=== PATIENT | male | born 1935 | race Caucasian/White ===

== ENCOUNTER 2018-03-13 09:19 | Observation (INO) | payer MEDICARE, OTHER ==
[~2018-03-13] VITALS: Ht 172.7 cm; Wt 81.2 kg
[2018-03-13] VITALS (15 sets, daily range): BP systolic 82–141; BP diastolic 45–80
[~2018-03-13 09:19] MED LIST: ADVAIR HFA 230M12 GM INH; ASPIR 8181 MG PO; CELEXA20 MG PO; CRESTOR10 MG; CRESTOR20 MG PO; ELIQUIS2.5 MG PO; FINASTERIDE5 MG PO; FLOMAX0.4 MG PO; FUROSEMIDE 80 M80 MG PO; LISINOPRIL5 MG PO; NITROGLYCERIN0.4 MG SUBLING; OMEPRAZOLE 20 M20 M1 PO; PLAVIX 75 MG TA75 M1 PO; XALATAN2.5 ML INTRAOCULR; XALATAN2.5 ML OPHTHALMIC
[2018-03-13] MEDS ORDERED: SYMBICORT160 MCG/4. INH (10:16)
[2018-03-13] MEDS ORDERED: ASPIR 8181 MG PO (10:17)
[2018-03-13 10:18] LABS: HEMATOCRIT 43.7 % (42.0-52.0); HEMOGLOBIN 14.9 gm/dL (14.0-18.0); MCH 33.4 pg (26.0-34.0); MCHC 34.1 g/dL (28.0-37.0); MCV 97.8 fL (80.0-100.0); MPV 8.8 fl. (7.2-11.1); RBC 4.47 mil/uL (4.50-6.00); RDW-CV 15.1 % (10.5-14.5); WBC 8.5 thou/uL (4.0-11.0)
[2018-03-13] MEDS ORDERED: IMDUR 30 MG TAB30 M1 PO (10:18)
[2018-03-13 10:34] LABS: ANION GAP 13 mmol/L (7-16); BUN 40 mg/dL (7-18); CALCIUM 9.7 mg/dL (8.5-10.1); CHLORIDE 103 mmol/L (98-107); CO2 24 mmol/L (21-32); CREATININE 2.2 mg/dL (0.6-1.3); GLUCOSE 93 mg/dL (70-99); POTASSIUM 4.3 mmol/L (3.5-5.1); SODIUM 140 mmol/L (136-145)
[2018-03-13 10:38] LABS: ALBUMIN 3.9 g/dL (3.4-5.0); ALKALINE PHOSPHATASE 60 U/L (46-116); CHOLESTEROL 180 mg/dL (<200); HDL CHOLESTEROL 62 mg/dL (>40); LDL CHOLESTEROL 99 mg/dL (<100); SGOT 17 U/L (15-37); SGPT 22 U/L (30-65); TC:HDL 2.9 Ratio (Not establshd); TOTAL BILIRUBIN 0.4 mg/dL (<0.1-1.0); TOTAL PROTEIN 7.7 g/dL (6.4-8.2); TRIGLYCERIDE 95 mg/dL (<150); VLDL 19 mg/dL (<40)
[2018-03-13 10:39] LABS: APTT 29.7 Seconds (25.0-31.3)
[2018-03-13 10:44] LABS: SERUM ASSESSMENT Clear
[2018-03-13 14:35] LABS: CK-MB MASS 1.3 ng/mL (<0.5-3.6); TROPONIN-I LEVEL <0.06 ng/mL (<0.06)
--- NOTE | 2018-03-13 16:09 | NUR ---
RECIEVIED REPORT FROM JAKE RN IN DRIVER MANAGER AT 1450 OF EXPECTED ADMISSION POST CATH- PT REPORTED TO HAVE RECIEVIED 2 STENTS WITH ACCESS TO RIGHT GROIN- PT ARRIVED TO ROOM 201 VIA CART WITH TRANSFER TO BED WITH ASSIST X3- DRY BOX OPERATOR PLACED ORDERED, NOTED TO BE AV PACED WITH PACEMAKER NOTED-PT A&O X4- CONTINENT OF BOWEL AND BLADDER- LCTA, DIMINISHED IN BASES- RESP EVEN AND UN-LABORED- VS 97.5 20 132/62 72 97% ON 2L VIA NC- ABDOMEN SOFT/OBESE/NON-TENDER, BS X4 QUADS- LAST BM REPORTED 03/12/18- RIGHT GROIN SITE C/D/I WITH GAUZE TRANSPARENT DRESSING IN PLACE WITH NO VISIBLE DRAINAGE OR HEMATOME NOTED- PT INSTRUCTED IMMOBILIZATION TO RLE- POST CATH VITALS PER PROTCOL IN PLACE ORDERED- PT RATES PAIN TO BE SUBSIDING TO CHEST AT 05/04- SKIN C/D/I- NOTED WITH OWN TEETH IN PLACE- RIGHT HEARING LOSS NOTED- REPORS TO WEAR GLASSES THAT PT REPORTS TO HAVE AT TIME OF ADMISSION- IV NOTED TO RIGHT FA INTACT, IVF INFUSSING PRESCIBED- CALL LIGHT AND PERSONAL BELONGINGS WITH IN REACH- HOURLY ROUNDS IN PLACE R/T SAFETY/NEEDS- ALL NEEDS MET AT THIS TIME-WCTM
[2018-03-13 21:40] LABS: HEMOGLOBIN 11.9 gm/dL (14.0-18.0)
[2018-03-14] VITALS: BP 81/47
[2018-03-14 04:00] VITALS: BP 80/46
[2018-03-14 04:50] LABS: HEMATOCRIT 34.8 % (42.0-52.0); HEMOGLOBIN 11.7 gm/dL (14.0-18.0); MCH 33.5 pg (26.0-34.0); MCHC 33.5 g/dL (28.0-37.0); MPV 8.9 fl. (7.2-11.1); RBC 3.48 mil/uL (4.50-6.00); RDW-CV 15.4 % (10.5-14.5); WBC 7.2 thou/uL (4.0-11.0)
[2018-03-14 05:19] LABS: ALBUMIN 2.9 g/dL (3.4-5.0); CALCIUM 8.5 mg/dL (8.5-10.1); POTASSIUM 4.7 mmol/L (3.5-5.1); TOTAL BILIRUBIN 0.5 mg/dL (<0.1-1.0); TOTAL PROTEIN 5.4 g/dL (6.4-8.2); TROPONIN-I LEVEL 0.15 ng/mL (<0.06)
--- NOTE | 2018-03-14 05:44 | NUR ---
BP DECREASED, CARDIO CONTACTED ORDERS RECIEVED. PT BP STABLIZED AROUND 80'S / 40'S. NO COMPLAINTS OF LEG PAIN OR UNSTABLE ANGINA. SEE MAR. SEE CHARTING. FALL PRECAUTIONS IN PLACE. HOURLY ROUNDING FOR SAFETY.
[2018-03-14 08:05] VITALS: BP 98/56
--- NOTE | 2018-03-14 08:05 | NUR ---
RECEIVED REPORT FROM WILL AND ASSUMED CARE OF PT @ 2560.PT IS A/O X4,BP LOW @ 98/56.TRACING SR WITH BBB ON THE MONITOR.PT IV PATENT WITH IVF INFUSING PER ORDERS.PT IS CALM AND COOPERATIVE WITH C/O INTERMITTENT PAIN IN CHEST.PT IS UP SBA IN ROOM.PT LEFT RSTING IN BED WITH CALL LIGHT AND FALL PRECAUTIONS IN PLACE. AT BEDSIDE.WILL CONTINUE TO MONITOR.
[2018-03-14] MEDS ORDERED: PLAVIX 75 MG TA75 M1 PO (11:43)
--- NOTE | 2018-03-14 12:21 | NUR ---
PT OK FOR DISCHARGE.DISCHARGE PAPERWORK COMPLETED ANF GIVEN TO PT.SCRIPTS GIVEN WITH EDUCATION.IV REMOVED.HEART MONITOR REMOVED AND RETURNED TO NURSING STATION.ALL PERSONAL BELIONGINGS PACKED AND GIVEN TO PT.POST HOSPITAL FOLLOW UP SCHEDULED.CATH SITE CLEAN,DRY,AND INTACT.PT WHEELED OUT BY NURSING STAFF TO PERSONAL VEHICLE.
--- NOTE | 2018-03-14 14:51 | EKG ---
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: : 1935 Requested By: Durga Perry Order Number: [id number] Susy MD: Durga Perry Measurements Intervals [place] Rate: 73 P: 0 [place]: 79 QRS: -10 QRSD: 183 T: 163 QT: 465 QTc: 513 Interpretive Statements Atrial-ventricular dual-paced complexes No further analysis attempted due to paced rhythm Compared to ECG 10/06/2016 07:44:07 No significant changes Electronically Signed On 03-14-2018 14:51:06 RECLAIMER by Durga Perry [email or web address] <ELECTRONICALLY SIGNED> By: Durga Perry MD, [facility] 03/14/18 1451 1003 1003 Durga Perry MD, [facility] /EPI
--- NOTE | 2018-03-14 14:52 | EKG ---
[place] [address] ELECTROCARDIOGRAM REPORT Name: EDSON FORREST Room: [address] M.R.#: [id number] Admission: 03/13/18 Attend Phys: Durga Perry MD, Discharge: 03/14/18 Date of : 31 Report #: [id number] THIS REPORT FOR: //name// [facility] Test Date: 2018-03-13 Test Time: 13:36:48 Pat Name: EDSON FORREST Department: Room: [facility] Gender: M Animal Sitter: : 1935 Requested By: Durga Perry Order Number: [id number] Susy MD: Durga Perry Measurements Intervals [place] Rate: 68 P: 49 PA: 52 QRS: 89 QRSD: 213 T: 211 QT: 543 QTc: 578 Interpretive Statements Ventricular-paced complexes No further analysis attempted due to paced rhythm Compared to ECG 10/06/2016 07:44:07 No significant changes Electronically Signed On 03-14-2018 14:52:40 FOUNDRY WORKER GENERAL by Durga Perry [email or web address] <ELECTRONICALLY SIGNED> By: Durga Perry MD, [facility] 03/14/18 1452 1336 1336 Durga Perry MD, [facility] /EPI
--- NOTE | 2018-03-14 15:01 | EKG ---
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: : 1935 Requested By: Durga Prery Order Number: [id number] Reading MD: Durga Perry Measurements Intervals [place] Rate: 75 P: 16 VT: 67 QRS: -4 QRSD: 190 T: 7 QT: 478 QTc: 534 Interpretive Statements A-V dual-paced rhythm with some inhibition No further analysis attempted due to paced rhythm Compared to ECG 10/06/2016 07:44:07 No significant changes Electronically Signed On 03-14-2018 15:01:06 DIVER TENDER by Durga Perry [email or web address] <ELECTRONICALLY SIGNED> By: Durga Perry MD, [facility] 03/14/18 1501 0810 0810 Durga Perry MD, [facility] /EPI
--- NOTE | 2018-03-14 16:15 | D ---
[address] [address] DISCHARGE SUMMARY Name: EDSON FORREST Room: [address] Sue M.R.#: [id number] Admission: 03/13/18 Attend Phys: Durga Perry MD, Discharge: 03/14/18 Date of : 31 Report #: [id number] THIS REPORT FOR: //name// CC: NILESH Perry DATE OF SERVICE: 03/14/2018 LOCATION: 201 FINAL DISCHARGE DIAGNOSES: 1. Unstable angina. 2. Status post remote coronary artery bypass grafting. 3. Status post multiple percutaneous coronary interventions, most recently vein graft of the circumflex on 03/13/2018. 4. Coronary artery disease. 5. Chronic obstructive pulmonary disease. 6. Hyperlipoproteinemia. 7. History of pulmonary emboli. PROCEDURES: 03/13/2018 -- left heart catheterization, selective coronary arteriography, aortocoronary saphenous vein bypass graft study, and percutaneous coronary intervention of the vein graft to the circumflex. The patient is a very pleasant 82-year-old male with complex coronary and vascular disease. He is status post remote coronary artery bypass grafting. There is a history of hyperlipoproteinemia, chronic obstructive pulmonary disease and prior pulmonary emboli. Recently, he has noted an increase in frequency and severity of episodes of angina compatible with clinical instability. In this context, I performed repeat cardiac catheterization on 03/13/2018, which revealed a widely patent LAD with multiple stents throughout with 40% proximal and midvessel narrowing. Circumflex was totally occluded with a patent saphenous vein graft to the circumflex with 80% very proximal and 75% mid graft in-stent restenosis. The right coronary artery was totally occluded, but filled via collaterals from the circumflex. Given this data, I performed percutaneous coronary intervention, deploying 2 drug-eluting stents in the very proximal graft of the circumflex and one in the mid with 10% residual narrowing at both sites following stent deployment and WU 3 flow of the distal vessel. Troponin steve inconsequentially to 0.15 units. He did well post-procedurally and there was good hemostasis [place] [address] DISCHARGE SUMMARY Name: EDSON FORREST [address]: [address]#: [id number] Admission: 03/13/18 Attend Phys: Durga Perry MD, Discharge: 03/14/18 Date of : 33 Report #: [id number] site of catheterization. LABORATORY DATA: On 03/14/2018 revealed sodium 140, potassium 4.0. BUN 34, down from 40. Creatinine 2.0, down from 2.2 preprocedurally. Glucose 87. White blood cell count 7200, hemoglobin 11.7, hematocrit 34.8, platelet count 179,000. He ambulated in the hallways without difficulty. He was discharged to home in stable condition on 03/14/2018 on the following medications: Apixaban or Eliquis 2.5 mg b.i.d., aspirin 81 mg daily, Symbicort inhaled b.i.d., citalopram 20 mg daily, Plavix or clopidogrel 75 mg daily with 600 mg loading dose, finasteride 5 mg at bedtime, furosemide 80 mg daily, Imdur 30 mg daily, Xalatan eyedrops 1 drop at bedtime, lisinopril 5 mg at bedtime, Crestor 40 mg at bedtime, tamsulosin or Flomax 0.4 mg b.i.d., p.r.n. sublingual nitroglycerin. I will plan to see him in followup in the first week of March, and his continuing care will be with Dr. Nilesh Rachel. <ELECTRONICALLY SIGNED> By: Durga Perry MD, [facility] 03/14/18 1615 0942 1004Durga Perry MD, FAC /nt
--- NOTE | 2018-03-15 11:36 | CARD ---
[address] [address] CARDIAC CATH REPORT Name: EDSON FORREST Room: [address] Sue M.R.#: [id number] Admission: 03/13/18 Attend Phys: Durga Perry MD, Discharge: 03/14/18 Date of : 31 Report #: [id number] THIS REPORT FOR: //name// APPROVED REPORT Study performed: 03/13/2018 11:24:44 Patient Details Patient Status: Out-Patient Room #: The patient is a 82 year-old male Event Personnel Durga Perry Indoor Landscaper/Gardener, Madyson Thomas RN RN, Fei Murcia Monitor, Carlton Raza Haley, Jessica RTR Monitor, Claudia Parker RN Occupational Therapy Co Director Procedures Performed Art Access - R femoral artery* Left Heart Cath Coronaries, Bypass Grafts LHCCORCABG DANYELLE Revasc Graft Single CIRC C9604 SVGREVSING Hemostasis w/ Angioseal Indication Unstable angina Risk Factors Hypercholesterolemia, Hypertension, Last Creatanine 2.2 Previous Procedures/Diagnoses Previous CABGPrevious PCI Admission/Lab Medications/Medications given during procedure Angiomax IV 10.5 mg per kg, Angiomax Drip IV 24.9 ml per hr, Angiomax IV 6 ml Procedure Narrative The patient was brought electively to the Cardiac Catheterization Laboratory and was prepped and draped in a sterile manner. The right femoral was infiltrated with 2% Lidocaine subcutaneous anesthesia. A Foster 6 FR sheath was inserted into the right femoral artery. Coronary angiography was performed using coronary diagnostic catheters. The right coronary system was accessed and visualized with a Diagnostic 6Fr JR4 catheter. The left coronary system was accessed and visualized with a Diagnostic 6Fr JL4 catheter. Left ventricular/Aortic Valve gradient assessed via catheter pullback. Pre-demployment femoral angiogram was performed . [place] [address] CARDIAC CATH REPORT Name: EDSON FORREST Room: [address] M.R.#: [id number] Admission: 03/13/18 Attend Phys: Durga Perry MD, Discharge: 03/14/18 Date of : 33 Report #: [id number] deployed with a 6 Fr Angioseal STS 6Fr. Hemostasis was obtained with manual pressure following sheath removal without any complications. The patient tolerated the procedure well and there were no complications associated with the procedure. There was no hematoma. Intraoperative Conscious Sedation Sedation start time: 1154 Case end Time: 1300 Fentanyl 100 mcg Versed 3 mg Fluoro Time: 23.8 minutes Dose: DAP [id number] cGycm2 84.1 mGy Contrast Type and Amount: Visipaque 300 ml Coronary Angiography The patient's coronary anatomy is right dominant. Diagnostic Cath Left Main 0% narrowing LAD 40% proximal and mid LAD narrowing with multiple patent stents Circumflex 100% proximal occlusion Right Coronary 100% mid vessel occlusion with collaterals from the distal circumflex to the distal right coronary artery Hemodynamics The aortic pressure is 113/59 mmHg with a mean of 81 mmHg. The left ventricular pressure is 109/-2 mmHg with a mean of mmHg. The left ventricular end diastolic pressure is 8 mmHg. There was no gradient across the aortic valve upon pullback. PCI Technique Lesion Anticoagulation was achieved with Angiomax. Percutaneous coronary intervention was performed on the SVG of Circumflex; 80% proximal with 75% mid graft in-stent restenosis. A 6F JR 4.0 Guide Catheter was used to engage the ostium. A BMW 190 Interventional Guidewire was used to cross the lesion. BALLOON DILATION A Balloon catheter Trek RX 3.0 X 8 was inserted and inflated up to 18:00atm for 9seconds. A Balloon catheter EA NC Trek 3.50X8 was inserted and inflated up 20atm for 17 seconds. additional inflation up to 22atm for 14seconds. [place] [address] CARDIAC CATH REPORT Name: EDSON FORREST Room: [address] MClemenciaR.#: [id number] Admission: 03/13/18 Attend Phys: Durga Perry MD, Discharge: 03/14/18 Date of : 33 Report #: [id number] STENT DEPLOYMENT A drug-eluting stent Xience Lori 3.5X8mm was inserted and inflated up to 17.00atm for 16seconds. Additional Inflation: 18.00atm for 10seconds. A drug-eluting stent Xience Lori 3.25X12 was inserted and inflated up to 14:00atm for 21 seconds. additional [id number]:00 sultana for 11 seconds. A drug-eluting stent Xience Lori 3.5X8 was inserted and inflated up to 14:00atm for 8 seconds. Additional infation for 16:00atm for 12 seconds. This pertains to the proximal lesion A 3.5 by 8mm Lori stent was deployed in the midportion of the graft after predilatation with a 3.5 x 8 mm NC trek balloon POST STENT DEPLOYMENT BALLOON DILATION A Balloon catheter NC Trek RX 3.5 X 8 was inserted and inflated up to 15.00atm for 11seconds. Additional Inflation: 16.00atm for 10seconds. Additional Inflation: 16.00atm for 7seconds. Final angiography reveals 10 % stenosis with WU 3 flow. Conclusion #1 significant coronary artery disease characterized by the following: A 40% proximal and mid LAD narrowing with widely patent stents at multiple sites B total occlusion of the circumflex proximally C total occlusion of right coronary artery in its midportion with collaterals from the distal circumflex to the distal right coronary artery #2 graft study characterized by the following: A patent saphenous vein graft to the circumflex with 80% focal proximal and 75% mid graft in-stent restenosis #3 normal left-sided hemodynamics study #4 successful percutaneous coronary intervention with deployment of sequential drug-eluting stents at the sites of 80% focal proximal and 75% mid saphenous vein graft in-stent restenosis with 10% residual narrowing at both sites following stent deployment and WU-3 flow to the distal vessel Recommendations [address] [address] CARDIAC CATH REPORT Name: EDSON FORREST Room: [address]R.#: [id number] Admission: 03/13/18 Attend Phys: Durga Perry MD, Discharge: 03/14/18 Date of : 33 Report #: [id number] Daily ASA with Plavix for at least one year Cardiac Risk Reduction Program Aggressive Medical Therapy Medications Administered Aspirin (any) Clopidogrel Diagnostic Cath Approved by: Durga Perry MD Date/Time: 03/15/2018 11:34:05 <ELECTRONICALLY SIGNED> By: Durga Perry MD, FAC 03/15/18 1136 1136 1136Durga Perry MD, FACC /INF
== END 2018-03-14 12:45 | disposition home or self-care (01) ==
LOC: M.CL 09:19 → M.2W 13:32 → M.TBA-CV 13:32 → M.2W 15:16
PROVIDERS: Internal Medicine Cardiovascular Disease; ADMIT Internal Medicine
DX: I25.110 Atherosclerotic heart disease of native coronary artery with unstable angina pectoris (principal); J44.9 Chronic obstructive pulmonary disease, unspecified; E78.5 Hyperlipidemia, unspecified; Z86.711 Personal history of pulmonary embolism; Z95.1 Presence of aortocoronary bypass graft

== ENCOUNTER 2019-01-29 07:26 | Observation (INO) | payer MEDICARE, OTHER ==
[~2019-01-29] VITALS: Ht 172.7 cm; Wt 73.5 kg
[2019-01-29] VITALS (10 sets, daily range): BP systolic 112–140; BP diastolic 65–77
--- NOTE | ~2019-01-29 | H ---
[address] [address] HISTORY AND PHYSICAL Name: EDSON FORREST Room: [address] Sue M.RClemencia#: [id number] Admission: 01/29/19 Attend Phys: Durga Perry MD, Discharge: 01/30/19 Date of : 33 Report #: [id number] THIS REPORT FOR: //name// Please refer to the History and Physical performed in the physician's office. By: 0650Medical Records Staff RENE /ANABELL
[~2019-01-29 07:26] MED LIST changes: +IMDUR 30 MG TAB30 M1 PO; +SYMBICORT160 MCG/4. INH
[2019-01-29 08:56] LABS: HEMATOCRIT 42.4 % (42.0-52.0); HEMOGLOBIN 14.7 gm/dL (14.0-18.0); MCH 33.8 pg (26.0-34.0); MCHC 34.7 g/dL (28.0-37.0); MCV 97.3 fL (80.0-100.0); MPV 8.8 fl. (7.2-11.1); RBC 4.35 mil/uL (4.50-6.00); RDW-CV 15.1 % (10.5-14.5); WBC 7.8 thou/uL (4.0-11.0)
[2019-01-29 09:05] LABS: ANION GAP 10 mmol/L (7-16); BUN 33 mg/dL (7-18); CALCIUM 10.1 mg/dL (8.5-10.1); CHLORIDE 107 mmol/L (98-107); CO2 24 mmol/L (21-32); CREATININE 2.2 mg/dL (0.6-1.3); GLUCOSE 68 mg/dL (70-99); POTASSIUM 4.4 mmol/L (3.5-5.1); SODIUM 141 mmol/L (136-145)
[2019-01-29 09:09] LABS: ALBUMIN 3.7 g/dL (3.4-5.0); ALKALINE PHOSPHATASE 54 U/L (46-116); CHOLESTEROL 179 mg/dL (<200); HDL CHOLESTEROL 61 mg/dL (>40); LDL CHOLESTEROL 100 mg/dL (<100); SGOT 18 U/L (15-37); SGPT 20 U/L (30-65); TC:HDL 2.9 Ratio (Not establshd); TOTAL BILIRUBIN 0.4 mg/dL (<0.1-1.0); TOTAL PROTEIN 7.2 g/dL (6.4-8.2); TRIGLYCERIDE 93 mg/dL (<150); VLDL 19 mg/dL (<40)
[2019-01-29 09:14] LABS: SERUM ASSESSMENT Clear
[2019-01-29 09:22] LABS: APTT 26.9 Seconds (25.0-31.3)
--- NOTE | 2019-01-29 11:08 | EKG ---
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: : 1935 Requested By: Yann Ureña Order Number: [id number] Susy MD: Yann Ureña Measurements Intervals [place] Rate: 77 P: 5 ME: 137 QRS: -8 QRSD: 183 T: -35 QT: 520 QTc: 589 Interpretive Statements A-V dual-paced rhythm with some inhibition No further analysis attempted due to paced rhythm Compared to ECG 03/14/2018 08:10:16 No significant changes Electronically Signed On 01-29-2019 11:08:00 ACTIVITY MANAGER by Yann Ureña [email or web address] <ELECTRONICALLY SIGNED> By: Yann Ureña MD, [facility] 01/29/19 1108 0839 0839 Yann Ureña MD, [facility] /EPI
--- NOTE | 2019-01-29 11:10 | EKG ---
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: : 1935 Requested By: Durga Perry Order Number: [id number] Susy MD: Yann Ureña Measurements Intervals [place] Rate: 83 P: 155 [place]: 57 QRS: 172 QRSD: 189 T: 164 QT: 469 QTc: 552 Interpretive Statements A-V dual-paced rhythm with some inhibition No further analysis attempted due to paced rhythm Compared to ECG 01/29/2019 08:39:39 No significant changes Electronically Signed On 01-29-2019 11:10:21 CUPOLA MECHANIC by Yann Ureña [email or web address] <ELECTRONICALLY SIGNED> By: Yann Ureña MD, FACC 01/29/19 1110 1105 1105 Yann Ureña MD, [facility] /EPI
--- NOTE | 2019-01-29 15:03 | CARD ---
[address] [address] CARDIAC CATH REPORT Name: LONEDSON GALLOWAY Room: [address] M.R.#: [id number] Admission: 01/29/19 Attend Phys: Durga Perry MD, Discharge: Date of : 33 Report #: [id number] THIS REPORT FOR: //name// APPROVED REPORT Study performed: 01/29/2019 09:04:43 Patient Details Patient Status: Out-Patient Room #: Event Personnel Dr. Durga Perry Procedures Performed Left heart catheterization selective coronary angiography saphenous vein graft angiography and percutaneous coronary intervention to the saphenous vein graft to the circumflex Indication Unstable angina Risk Factors Obesity, Hypercholesterolemia, Hypertension, Diabetes Previous Procedures/Diagnoses Previous CABGPrevious PCI Admission/Lab Medications/Medications given during procedure Angiomax bolus and infusion Procedure Narrative The patient was brought electively to the Cardiac Catheterization Laboratory and was prepped and draped in a sterile manner. The right femoral was infiltrated with 2% Lidocaine subcutaneous anesthesia. A 6 Portuguese sheath was inserted into the right femoral artery. Coronary angiography was performed using coronary diagnostic catheters. The right coronary system was accessed and visualized with a Diagnostic catheter. The left coronary system was accessed and visualized with a Diagnostic catheter. The left ventricle was accessed and visualized with a Diagnostic catheter. Left ventricular/Aortic Valve gradient assessed via catheter pullback. Pre-demployment femoral angiogram was performed . Closure device was deployed with a 6 Fr Angioseal. There was no hematoma. Elem Artery Percent Stenosis [facility] [address] [place] [address] CARDIAC CATH REPORT Name: LONEDSON FARAH NILESH Room: [address] M.R.#: [id number] Admission: 01/29/19 Attend Phys: Durga Perry MD, Discharge: Date of : 31 Report #: [id number] Patent saphenous vein graft to the circumflex with 10% proximal in-stent narrowing and 75-80% mid graft in-stent restenosis Diagnostic Cath Left Main 0% narrowing LAD 40 Percent proximal and mid LAD narrowing with widely patent LAD stents Circumflex 100% proximal occlusion Right Coronary Previously defined 100% mid vessel occlusion with hkyt-et-gynjp collaterals filling the distal right coronary artery Left Ventriculography Left Ventriculography was not performed. Hemodynamics The aortic pressure is 140/70 mmHg with a mean of 82 mmHg. The left ventricular end diastolic pressure is 10 mmHg. There was no gradient across the aortic valve upon pullback. PCI Technique Lesion Anticoagulation was achieved with Angiomax. Percutaneous coronary intervention was performed on the midportion of the saphenous vein graft to the circumflex. The lesion stenosis prior to intervention was 80% with WU 3 flow. BALLOON DILATION A Balloon catheter 3.0 x 12 mm trek, 2.5x10 angiosculpt was inserted and inflated up to 18-20atm for 15seconds. STENT DEPLOYMENT A drug-eluting stent 3.5 x 12 mm osman was inserted and inflated up to 20atm for 15seconds. Final angiography reveals 10 % stenosis with WU 3 flow. Conclusion #1 Significant coronary artery disease characterized by the following: A 40% proximal and mid LAD narrowings with widely patent LAD stents B Total occlusion [place] [address] CARDIAC CATH REPORT Name: LONEDSON Room: [address] Helen#: [id number] Admission: 01/29/19 Attend Phys: Durga Perry MD, Discharge: Date of : 31 Report #: [id number] C previously defined total occlusion of the right coronary artery proximally with iowj-ys-kfkzb collaterals filling the distal right coronary artery #2 graft characterized by the following: A single patent saphenous vein graft to the circumflex with 10% proximal graft narrowing and 75-80% mid graft in-stent restenosis #3 normal left-sided hemodynamics study #4 successful atherectomy with stenting of the 75-80% mid graft stenosis in the graft to the circumflex with 10% residual narrowing and WU 3 flow the distal vessel Recommendations Cardiac Risk Reduction Program Aggressive Medical Therapy Medications Administered Aspirin (any) Clopidogrel Diagnostic Cath Approved by: Durga Perry MD Date/Time: 01/29/2019 14:59:29 <ELECTRONICALLY SIGNED> By: Durga Perry MD, [facility] 01/29/19 1503 1503 1503Durga Perry MD, [facility] /INF
--- NOTE | 2019-01-29 15:14 | NUR ---
RECEIVED PT FROM [facility]ACLE IAM CONSULTANT AT 1130. GET SITUATED TO ROOM. AOX4, BEDREST UNTIL 1730. O2 SAT 90'S RA. TRACING AV PACED ON TELE. PT COMPLAINS OF CHEST PAIN. MEDS GIVEN. PT R GROIN CATH SITE C/D/I. VS MONITOR. ADMISSION CHARTED. CALL LIGHT WITHI REACH, WILL CONTINUE TO MONITOR.
[2019-01-30] VITALS: BP 154/74; BP 99/59
--- NOTE | 2019-01-30 03:00 | NUR ---
ASSUMED PT CARE AT APPROX 1930. PT IS AWAKE AND ORIENTED X4. VSS ON ROOM AIR. 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 ASSESSMENT DONE AND CHARTED. POST CARDIAC CATH SITE DRESSING INTACT AND DRY, SMALL BRUINING NOTED. PT IS ABLE TO SLEEP MOST OF THE NIGHT. CALL LIGHT WITHIN REACH. HOURLY ROUNDING DONE FOR PT SAFETY.
[2019-01-30 04:00] VITALS: BP 114/50
[2019-01-30 05:01] LABS: HEMATOCRIT 39.7 % (42.0-52.0); HEMOGLOBIN 13.3 gm/dL (14.0-18.0); MCHC 33.5 g/dL (28.0-37.0); MCV 98.7 fL (80.0-100.0); MPV 9.3 fl. (7.2-11.1); RBC 4.03 mil/uL (4.50-6.00); RDW-CV 15.7 % (10.5-14.5); WBC 7.1 thou/uL (4.0-11.0)
[2019-01-30 05:40] LABS: CALCIUM 9.3 mg/dL (8.5-10.1); CREATININE 1.7 mg/dL (0.6-1.3); POTASSIUM 4.3 mmol/L (3.5-5.1); TOTAL BILIRUBIN 0.5 mg/dL (<0.1-1.0); TROPONIN-I LEVEL 0.56 ng/mL (<0.06)
[2019-01-30 07:24] VITALS: BP 140/71
[2019-01-30 07:30] VITALS: BP 138/69
--- NOTE | 2019-01-30 09:24 | NUR ---
ASSUMED PT CARE AT 0800, AOX4, UP SBA WITH CANE, O2 SAT 90'S RA. TRACING SR, BBB ON TELE. CATH SITE C/D/I. PT DENIES PAIN. PT FOR DISCHARGE, VSS, AM ASSESSMENT CHARTED. MEDS GIVEN PER MAR. CALL LIGHT WITHIN REACH, WILL CONTINUE TO MONITOR.
[2019-01-30 09:36] VITALS: BP 140/71
--- NOTE | 2019-01-30 10:21 | NUR ---
DISCHARGE PLAN DISCUSSED WITH PT AND . IV, TELE REMOVED. ALL BELONGINGS PACKED AND CHECK. REMINDED TO FOLLOW UP WITH CARDIOLOGY. CATH SITE CARE ADVISED. LEFT THE UNIT AT 1020 VIA WHEELCHAIR.
--- NOTE | 2019-01-30 10:22 | NUR ---
cm completed initial assessment to discuss d/c plan. pt up & dressed ready to d/c. pt , whom pt live at home w/, present during assessment. pt has RW. no hx w/HH. hx w/[facility], a facility in [place] pt denies any needs from cm at this time.
--- NOTE | 2019-01-30 15:51 | EKG ---
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: : 1935 Requested By: Durga Perry Order Number: [id number] Reading MD: Durga Perry Measurements Intervals [place] Rate: 69 P: 14 AK: 165 QRS: -11 QRSD: 171 T: 258 QT: 445 QTc: 477 Interpretive Statements Atrial-ventricular dual-paced complexes No further analysis attempted due to paced rhythm Compared to ECG 01/29/2019 11:05:49 No significant changes Electronically Signed On 01-30-2019 15:51:35 PROFESSOR OF ENVIRONMENTAL SCIENCE by Durga Perry [email or web address] <ELECTRONICALLY SIGNED> By: Durga Perry MD, [facility] 01/30/19 [id number] Durga Perry MD, [facility] /EPI
--- NOTE | 2019-01-30 16:52 | D ---
[address] [address] DISCHARGE SUMMARY Name: EDSON FORREST Room: [address] Sue M.RClemencia#: [id number] Admission: 01/29/19 Attend Phys: Durga Perry MD, Discharge: 01/30/19 Date of : 31 Report #: [id number] THIS REPORT FOR: //name// CC: Nilesh Perry DATE OF SERVICE: 01/30/2019 FINAL DISCHARGE DIAGNOSES: 1. Unstable angina. 2. Coronary artery disease. 3. Status post remote coronary artery bypass grafting. 4. Status post prior percutaneous coronary intervention of the right coronary artery and percutaneous coronary intervention to the saphenous vein graft to the circumflex on 01/29/2019. 5. Paroxysmal atrial fibrillation. 6. Hyperlipidemia. 7. Hypertension. 8. Sick sinus syndrome. 9. Ischemic cardiomyopathy. 10. Chronic obstructive pulmonary disease. PROCEDURES: 01/29/2019 -- left heart catheterization, selective coronary arteriography, aortocoronary saphenous vein bypass graft study, and percutaneous coronary intervention with atherectomy and stenting of a 75% to 80% stenosis in the mid portion of the vein graft to the circumflex. The patient is a very pleasant and active 83-year-old male with complex coronary artery disease, hyperlipidemia and hypertension. He presented with increasing episodes of chest discomfort compatible with angina following an unstable course. In this context, I performed cardiac catheterization on 01/29/2019 which revealed 40% narrowing of the proximal and mid LAD with widely patent mid LAD stents, total occlusion of the circumflex and [place] right coronary artery and a single patent vein graft to the circumflex with 10% proximal graft narrowing and 75%-80% in-stent restenosis of the mid portion of the graft. There was collateralization from the distal left system to the distal right coronary artery. Given this data, I performed percutaneous coronary intervention with atherectomy and stenting of the mid portion of the graft to the circumflex with 10% residual narrowing following final stent deployment, 3.5 x 12 mm drug-eluting stent. The patient did well post-procedurally. Troponin steve minimally to 0.56, no clinical significance. Hemoglobin is 13.3, white blood cell count 7100, platelets 198,000. Sodium 141, potassium 4.3, BUN 28 down from 33, creatinine 1.7 down from 2.2, glucose 91 [place] [address] DISCHARGE SUMMARY Name: LONEDSON NILESH [address] [id number] Admission: 01/29/19 Attend Phys: Durga Perry MD, Discharge: 01/30/19 Date of : 31 Report #: [id number] DISCHARGE MEDICATIONS: The patient was discharged to home on 01/30/2019 on the following medications: Apixaban or Eliquis 2.5 mg b.i.d., Symbicort inhalations b.i.d., Celexa 20 mg daily, clopidogrel 75 mg daily, finasteride 5 mg at bedtime, furosemide 20 mg daily, isosorbide mononitrate 15 mg daily, Xalatan eye drops 1 drop each eye daily, lisinopril 5 mg a day at bedtime, simvastatin 4 mg at bedtime, tamsulosin 0.4 mg b.i.d., p.r.n. sublingual nitroglycerin. He is scheduled to return to see me on 02/17/2019 at 1300 at the [facility] office and his continuing care will be Dr. Nilesh Rachel. Therefore, the patient is discharged to home in stable condition with followup as described above. <ELECTRONICALLY SIGNED> By: Durga Perry MD, FACC 01/30/19 1652 [id number] Perry MD, FACC /nt
== END 2019-01-30 10:20 | disposition home or self-care (01) ==
LOC: M.CL 07:26 → M.TBA-CV 10:52 → M.2W 10:52
PROVIDERS: Internal Medicine Cardiovascular Disease; ADMIT Internal Medicine
DX: I25.110 Atherosclerotic heart disease of native coronary artery with unstable angina pectoris (principal); I48.0 Paroxysmal atrial fibrillation; E78.5 Hyperlipidemia, unspecified; I10 Essential (primary) hypertension; I49.5 Sick sinus syndrome; J44.9 Chronic obstructive pulmonary disease, unspecified; I25.5 Ischemic cardiomyopathy; E78.00 Pure hypercholesterolemia, unspecified; E11.9 Type 2 diabetes mellitus without complications; E66.9 Obesity, unspecified; Z68.24 Body mass index [BMI] 24.0-24.9, adult